=== PATIENT | female | born 2000 | race Two or more races ===

== ENCOUNTER 2023-04-06 18:53 | Emergency (ER) | payer OTHER ==
[~2023-04-06] VITALS: Ht 157.5 cm; Wt 68.0 kg
== END 2023-04-06 21:36 | disposition home or self-care (01) ==
LOC: ER 18:54
DX: S61.250A Open bite of right index finger without damage to nail, initial encounter (principal); W55.01XA Bitten by cat, initial encounter; Y93.89 Activity, other specified; Y92.89 Other specified places as the place of occurrence of the external cause; Y99.8 Other external cause status

== ENCOUNTER 2023-12-18 19:18 | Emergency (ER) | payer OTHER ==
[~2023-12-18] VITALS: Ht 157.5 cm; Wt 70.3 kg
== END 2023-12-18 21:21 | disposition home or self-care (01) ==
LOC: ER 19:18
DX: S00.81XA Abrasion of other part of head, initial encounter (principal); X83.8XXA Intentional self-harm by other specified means, initial encounter; Y93.89 Activity, other specified; Y92.89 Other specified places as the place of occurrence of the external cause; Y99.9 Unspecified external cause status